=== PATIENT | male | born 1945 | race Caucasian/White ===

== ENCOUNTER → 2018-02-09 14:15 | Outpatient (CLI) | payer MEDICARE, OTHER ==
--- NOTE | ~2018-02-09 | ST ---
PATIENT:ELYSSA HOLDER MEDICAL RECORD: [id number] SEX: M LOCATION:[facility] ORDER #: ADMISSION DATE: 02/09/18 AGE OF PATIENT: 73 REFERRING PHYSICIAN: INTERPRETING PHYSICIAN: DEBRA GILL MD DATE OF SERVICE: 02/09/2018 TREADMILL STRESS TEST Exercised for 7 minutes 45 seconds on Eloy protocol. Maximum heart rate 149 beats per minute, 100% max predicted. No ECG change ischemia. No symptoms of ischemia. No blood pressure on his exercise. No arrhythmia is noted. Good exercise tolerance for age. TRANSINT:[id number] Voice Confirmation ID: [id number] DOCUMENT ID: [id number] DEBRA GILL MD at 1407 CC: [id number] DICTATION DATE: 02/10/18 1322 SHANK PINNER: 02/10/18 [id number] [facility] CLI 02/09/18 [address] [place] [address]
== END | disposition home or self-care (01) ==
LOC: D.HCCARDIO 14:15
DX: I48.91 Unspecified atrial fibrillation (principal)

== ENCOUNTER → 2019-03-15 09:34 | Outpatient (CLI) | payer MEDICARE, OTHER ==
--- NOTE | 2019-03-23 11:25 | EC ---
PATIENT:ELYSSA HOLDER DATE OF SERVICE: 03/15/19 SEX: M MEDICAL RECORD: [id number] DATE OF : 47 LOCATION:D.[facility] AGE OF PATIENT: 74 ADMISSION DATE: 03/15/19 REFERRING PHYSICIAN: INTERPRETING PHYSICIAN: DEBRA GILL MD ECHOCARDIOGRAM REPORT ECHO CHARGES 4 ECHO COMPLETE Date: 03/15/19 CLINICAL DIAGNOSIS: HTN/ASSESS EF/MITRAL REGURG HX OF AFIB ECHOCARDIOGRAPHIC MEASUREMENTS (adult normal given) AC root (d.<3.7cm) 3.9 cm LV Septum d (<1.2 cm> 1.5 cm Valve Excursion 2.1 cm LV Septum (systole) 1.9 cm Left Atria (s.<4.0cm> 3.7 cm LVPW d(<1.2cm) 1.7 cm RV (d.<2.3cm) 3.1 cm LVPW (sytole) 1.9 cm LV diastole(<5.6CM) 3.2 cm MV E-F(>70mm/sec) cm LV systole 2.1 cm LVOT Diameter 2.0 cm MV exc.(>10mm) cm Est.ejection fraction (50-75%) % DOPPLER: LVIT cm/sec A 80.0 cm/sec E cm/sec LA cm/sec RVSP 31 mmHg LVOT 80 cm/sec AOP1/2T m/s Asc. Ao 103 cm/sec RVOT 78 cm/sec RA cm/sec PA 83 cm/sec AV Gradient Peak 4.26 mmHg AV Mean 2.41 mmHg AV Area 2.3 cm MV Gradient Peak mmHg MV Mean mmHg MV Area cm COMMENTS: [facility] Counselor: 2 HEMANT [place] [employer]: 3 Dr. Richard TAPE# PACS Pericardial Effusion N DATE OF SERVICE: Adequate 2D, color-flow imaging, spectral Doppler, and M-Mode. LVH is present. LV internal dimension is normal. Wall motion is normal. EF is greater than or equal to 55%. Aortic valve is tricuspid. No evidence of stenosis by Doppler interrogation. Left atrium normal at 3.7 cm. Mitral valve shows no prolapse. Trace MR. Right-sided chambers are grossly normal. Trace TR. ECHOCARDIOGRAM REPORT [id number] ELYSSA HOLDER TRANSINT:[id number] Voice Confirmation ID: [id number] DOCUMENT ID: [id number] DEBRA GILL MD at 1125 CC: [id number] DICTATION DATE: 03/16/19 1238 TELEPHONE TECHNICIAN: 03/16/19 1501 [facility] CLI 03/15/19 [id number] [place] [address]
== END | disposition home or self-care (01) ==
LOC: D.HCCECHO 09:34
PROVIDERS: ATTEND Internal Medicine Interventional Cardiology
DX: I10 Essential (primary) hypertension (principal)

== ENCOUNTER → 2019-09-25 09:37 | Outpatient (CLI) | payer MEDICARE, OTHER ==
[~2019-09-25 09:37] MED LIST: BAYER CHEWABLE81 MG PO; FLOMAX0.4 MG PO; LOPRESSOR25 MG PO; LOTREL 5-40 MG1 EACH PO
[2019-09-26 09:43] VITALS: BMI 29.3
== END | disposition home or self-care (01) ==
LOC: D.LAB 09:37
PROVIDERS: ATTEND Surgery
DX: Z11.59 Encounter for screening for other viral diseases (principal)

== ENCOUNTER 2019-09-26 08:37 | Day surgery (SDC) | payer MEDICARE, OTHER ==
[~2019-09-26] VITALS: Ht 180.3 cm; Wt 95.5 kg
--- NOTE | ~2019-09-26 | OP ---
PATIENT NAME: ELYSSA HOLDER MEDICAL RECORD: [id number] :47 LOCATION:D.OPS ADMISSION DATE: SURGEON: SETH PEREZ MD DATE OF OPERATION: 09/26/2019 PREOPERATIVE DIAGNOSIS: History of colon polyps, in need of surveillance colonoscopy. POSTOPERATIVE DIAGNOSIS: 1. History of colon polyps, in need of surveillance colonoscopy. 2. No new colonic polyps or masses. PROCEDURES: Total colonoscopy to cecum. SURGEON: Seth Perez MD MEDICAL SUPERVISOR: None. BLOOD LOSS: 0. ANESTHESIA: IV sedation. COMPLICATIONS: None. The risks, possible complications, and alternatives to the procedure were explained to the patient. He elects to proceed. ENDOSCOPIC COURSE: The patient was conveyed to endoscopy suite electively on 09/26/2019. IV sedation was induced by the anesthesia staff. The patient was placed in the Rodriguez position. A digital rectal examination was performed. The prostate was symmetric and enlarged without nodules. A colonoscope was inserted easily to the cecum. The prep was adequate. I then slowly withdrew the endoscope. I irrigated and aspirated extensively. I dragged the folds. A combination of normal imaging and narrow band imaging were utilized. A retroflexed view was obtained in the rectum. I then unretroflexed the scope and removed it under direct vision. There is no need for the patient to follow up with me in the office. I will put him on a callback list for a surveillance colonoscopy in 3 years. TRANSINT:[id number] Voice Confirmation ID: [id number] DOCUMENT ID: [id number] SETH PEREZ MD CC: VANNESSA DESHPANDE [id number] DICTATION DATE: 09/26/197 AUTO FORMER MACHINE OPERATOR: 09/26/192109 [facility] 09/26/19 [facility] [address] [id number]
[2019-09-26 09:16] LABS: HEMATOCRIT 43.8 % (42.0-54.0); HEMOGLOBIN 15.4 g/dL (13.5-17.5); MCH 33.2 pg (26.0-34.0); MCHC 35.2 g/dL (31.0-37.0); MCV 94.4 fL (80.0-100.0); MEAN PLATELET VOLUME 9.3 fL (7.4-10.4); RBC 4.64 10x6/uL (4.20-6.10); RDW 12.7 % (11.5-14.5); WBC 4.3 10x3/uL (4.8-10.8)
[2019-09-26] MEDS ORDERED: LOPRESSOR25 MG PO (09:25)
[2019-09-26] MEDS ORDERED: LOTREL 5-40 MG1 EACH PO (09:25)
[2019-09-26] MEDS ORDERED: FLOMAX0.4 MG PO (09:26)
[2019-09-26] MEDS ORDERED: BAYER CHEWABLE81 MG PO (09:26)
[2019-09-26 09:43] VITALS: BP 139/83; Ht 180.3 cm; Wt 95.5 kg
--- NOTE | 2019-09-26 14:45 | NUR ---
1320 IV DC'ED WITH CATH INTACT. DRESSING. Alejandro MIGUEL R.N. 1340 DRESSED. AWAKE & ALERT. GIVEN DISCHARGE INFORMATION INCLUDING: MED REC & NP POST ENDOSCOPIC D/C INSTRUCTIONS. PT VOICED UNDERSTANDING. TO PRIVATE CAR PER WHEELCHAIR BY STAFF, HOME WITH MRS. MICHELE HOLDER. Alejandro MIGUEL R.N.
--- NOTE | 2019-09-26 18:31 | HP ---
PATIENT: ELYSSA HOLDER MEDICAL RECORD: [id number] ACCOUNT: [id number] LOCATION:D.[facility] : 47 ADMISSION DATE: 09/26/19 PCP: VANNESSA DESHPANDE MD HISTORY AND PHYSICAL EXAMINATION CHIEF COMPLAINT: Here for colonoscopy. HISTORY OF PRESENT ILLNESS: The patient has a history of colon polyps. He is here for surveillance colonoscopy. He has had 2 prior colonoscopies. He thinks that a small polyp was removed during the second colonoscopy. PAST MEDICAL AND SURGICAL HISTORY: Hypercholesterolemia, BPH, hypertension. SOCIAL HISTORY: Never smoked. ALLERGIES: No known drug allergies. HOME MEDICATIONS: Please see the nursing list. PHYSICAL EXAMINATION: GENERAL: The patient does not appear acutely ill. He does not appear chronically ill. EYES: Extraocular movements are intact. NECK: Trachea is midline. CHEST: No intercostal retractions. PULMONARY: Nonlabored, no stridor. IMPRESSION: History of colon polyps. PLAN: Plan will be surveillance colonoscopy. TRANSINT:[id number] Voice Confirmation ID: [id number] DOCUMENT ID: [id number] TASIA PEREZ MD at 1831 CC: VANNESSA DESHPANDE [id number] DICTATION DATE: 09/26/19 1153 CERTIFIED MEDICAL DOSIMETRIST: 09/26/19 1305 [facility] 09/26/19 [facility] [address] [place] [address]
== END 2019-09-26 13:40 | disposition home or self-care (01) ==
LOC: D.OPS 08:37
PROVIDERS: ATTEND Surgery
DX: Z86.010 Personal history of colon polyps (principal); E78.00 Pure hypercholesterolemia, unspecified; I10 Essential (primary) hypertension